=== PATIENT | female | born 1950 | race Hispanic/Latino ===

== ENCOUNTER 2017-09-13 11:51 | Emergency (ER) | payer OTHER ==
[2017-09-13] MEDS ORDERED: ONDANSETRON 4 MG/2 ML VIAL ONE (12:12)
[2017-09-13] MEDS ORDERED: KETOROLAC 30 MG/ML INJ ONE (12:12)
[2017-09-13] MEDS ORDERED: NA CHLORIDE 0.9% 1,000 ML ONE (12:12)
[2017-09-13] MEDS ORDERED: FENTANYL CITR 100 MCG/2 ML ONE (12:12)
[2017-09-13 12:32] LABS: Urine Bacteria <20 /HPF (<20); Urine Culture Reflex Order NOT NEEDED; Urine RBC <5 /HPF (NONE SEEN)
[2017-09-13 12:35] LABS: Absolute Lymphocytes (CBC) 3.9 K/uL (0.7-4.9); Absolute Monocytes 0.7 K/uL (0.1-1.3); Absolute Neutrophil 4.8 K/uL (1.8-8.0); Basophils % 0.6 % (0-1.3); Eosinophils % 1.6 % (0-4.4); Hematocrit 42.1 % (36.0-45.0); Lymphocytes % 40.3 % (15.3-44.8); MCH 30.9 pg (27.0-35.0); MCV 91.1 fL (80-100); MPV 8.1 fL (7.6-11.3); Monocytes % 6.9 % (3.3-12.3); RBC Red Blood Cell Count 4.62 M/uL (3.86-4.86)
[2017-09-13 13:03] LABS: Potassium 3.9 mEq/L (3.6-5.0)
[2017-09-13 13:10] LABS: Albumin 4.6 g/dL (3.2-5.5); Bilirubin Direct 0.1 mg/dL (0-0.2); Bilirubin Total 0.7 mg/dL (0.3-1.2); Protein, Total 7.9 g/dL (6.0-8.3)
[2017-09-13] MEDS ORDERED: DEXAMETHASONE 10 MG/ML VIAL ONE (13:48)
--- NOTE | 2017-09-13 14:28 | RAD REPORT ---
EXAM DESCRIPTION: CT - Abdomen Pelvis W Contrast - 09/13/2017 2:05 pm CLINICAL HISTORY: Abdominal pain with nausea. COMPARISON: none. TECHNIQUE: Computed axial tomography of the abdomen pelvis was obtained. 100 cc Isovue-300 was admin istered intravenously. Oral contrast was not requested which limits evaluation of bowel. All CT scans are performed using dose optimization technique as appropriate and may include automated exposure control or mA/KV adjustment according to patient size. FINDINGS: The liver has a diminished attenuation consistent with fatty infiltration Spleen, pancreas, adrenal and kidneys appear unremarkable. There is no evidence of diverticulitis. The appendix is normal IMPRESSION: No acute abnormality is displayed.
[2017-09-13 14:30] LABS: Urine Blood NEGATIVE (NEG); Urine Glucose NEGATIVE (NEG); Urine Protein NEGATIVE (NEG); Urine Specific Gravity <1.005 (1.005-1.030)
--- NOTE | 2017-09-13 15:09 | EDPHYS ---
Physician Documentation [facility] Name: Kavya Merida Age: 67 yrs Sex: Female : 1950 Arrival Date: 09/13/2017 Time: 11:53 Bed 8 Private MD: Maurice Landaverde ED Physician Maged Walton HPI: 09/13 12:07 This 67 yrs old Female presents to ER via Ambulatory with complaints of Back tsering Pain. 12:07 The patient presents with pain that is acute, and decreased range of motion. The tsering symptoms are located in the low back, lumbar area. Onset: The symptoms/episode began/occurred 4 day(s) ago. Location: left low back and right low back. Associated signs and symptoms: The patient has no apparent associated signs or symptoms. The problem was sustained from unknown cause. Modifying factors: The patient symptoms are alleviated by nothing. The patient has not experienced similar symptoms in the past. Historical: - Allergies: 12:04 No Known Allergies; hb - Home Meds: 12:30 None [Active]; hb - PMHx: 12:30 None; hb - Immunization history:: Adult Immunizations up to date. - Social history:: Smoking status: Patient/guardian denies using tobacco. - Family history:: not pertinent. ROS: 12:07 Constitutional: Negative for fever, chills, and weight loss, Eyes: Negative for injury, tsering pain, redness, and discharge, ENT: Negative for injury, pain, and discharge, Neck: Negative for injury, pain, and swelling, Cardiovascular: Negative for chest pain, palpitations, and edema, Respiratory: Negative for shortness of breath, cough, wheezing, and pleuritic chest pain, Abdomen/GI: Negative for abdominal pain, nausea, vomiting, diarrhea, and constipation, : Negative for injury, bleeding, discharge, and swelling, MS/Extremity: Negative for injury and deformity, Skin: Negative for injury, rash, and discoloration, Neuro: Negative for headache, weakness, numbness, tingling, and seizure, Psych: Negative for depression, anxiety, suicide ideation, homicidal ideation, and hallucinations, Allergy/Immunology: Negative for hives, rash, and allergies, Endocrine: Negative for neck swelling, polydipsia, polyuria, polyphagia, and marked weight changes, Hematologic/Lymphatic: Negative for swollen nodes, abnormal bleeding, and unusual bruising. 12:07 Back: Positive for decreased range of motion, pain at rest, radiated pain. Exam: 12:07 Constitutional: This is a well developed, well nourished patient who is awake, alert, tseirng and in no acute distress. Head/Face: Normocephalic, atraumatic. Eyes: Pupils equal round and reactive to light, extra-ocular motions intact. Lids and lashes normal. Conjunctiva and sclera are non-icteric and not injected. Cornea within normal limits. Periorbital areas with no swelling, redness, or edema. ENT: Nares patent. No nasal discharge, no septal abnormalities noted. Tympanic membranes are normal and external auditory canals are clear. Oropharynx with no redness, swelling, or masses, exudates, or evidence of obstruction, uvula midline. Mucous membranes moist. Neck: Trachea midline, no thyromegaly or masses palpated, and no cervical lymphadenopathy. Supple, full range of motion without nuchal rigidity, or vertebral point tenderness. No Meningismus. Chest/axilla: Normal chest wall appearance and motion. Nontender with no deformity. No lesions are appreciated. Cardiovascular: Regular rate and rhythm with a normal S1 and S2. No gallops, murmurs, or rubs. Normal PMI, no JVD. No pulse deficits. Respiratory: Lungs have equal breath sounds bilaterally, clear to auscultation and percussion. No rales, rhonchi or wheezes noted. No increased work of breathing, no retractions or nasal flaring. Abdomen/GI: Soft, non-tender, with normal bowel sounds. No distension or tympany. No guarding or rebound. No evidence of tenderness throughout. Female : Normal external genitalia. Skin: Warm, dry with normal turgor. Normal color with no rashes, no lesions, and no evidence of cellulitis. MS/ Extremity: Pulses equal, no cyanosis. Neurovascular intact. Full, normal range of motion. Neuro: Awake and alert, GCS 15, oriented to person, place, time, and situation. Cranial nerves II-XII grossly intact. Motor strength 5/5 in all extremities. Sensory grossly intact. Cerebellar exam normal. Normal gait. Psych: Awake, alert, with orientation to person, place and time. Behavior, mood, and affect are within normal limits. 12:07 Back: pain, that is moderate, ROM is painless, normal spinal alignment noted, CVA tenderness, is absent, muscle spasm, is appreciated in the left low back, left mid back, right mid back and right low back. Vital Signs: 12:04 BP 137 / 89; Pulse 82; Resp 16; Temp 98; Pulse Ox 100% on R/A; Pain 10/10; hb 13:00 BP 115 / 76; Pulse 80; Resp 15; Pulse Ox 100% on R/A; Pain 5/10; hb 14:00 BP 108 / 63; Pulse 65; Resp 14; Pulse Ox 100% on R/A; hb 15:00 BP 116 / 68; Pulse 64; Resp 16; Pulse Ox 100% on R/A; hb MDM: 11:58 Patient medically screened. [facility] 12:09 Data reviewed: vital signs, nurses notes, lab test result(s), radiologic studies. [facility] 09/13 12:06 Order name: Basic Metabolic Panel; Complete Time: 13:23 [facility] 09/13 12:06 Order name: CBC with Diff; Complete Time: 13:23 [facility] 09/13 12:06 Order name: Creatinine for Radiology; Complete Time: 13:23 [facility] 09/13 12:06 Order name: Hepatic Function; Complete Time: 13:23 [facility] 09/13 12:06 Order name: Lipase; Complete Time: 13:23 [facility] 09/13 12:06 Order name: Urine Microscopic Only; Complete Time: 13:23 [facility] 09/13 12:06 Order name: CT Abd/Pelvis - W/Contrast; Complete Time: 14:43 [facility] 09/13 12:10 Order name: Urine Culture [facility] 09/13 12:15 Order name: Urine Dipstick--Ancillary (enter results); Complete Time: 14:43 09/13 12:06 Order name: IV Saline Lock; Complete Time: 13:02 [facility] 09/13 12:06 Order name: Labs collected and sent; Complete Time: 13:03 [facility] 09/13 12:06 Order name: Urine Dipstick-Ancillary (obtain specimen); Complete Time: 12:09 [facility] Administered Medications: 12:22 Drug: NS 0.9% 1000 ml Route: IV; Rate: 1 bolus; Site: right antecubital; hb 13:08 Follow up: Response: No adverse reaction; IV Status: Completed infusion hb 12:22 Drug: TORadol 30 mg Route: IVP; Site: right antecubital; hb 13:08 Follow up: Response: No adverse reaction hb 12:22 Drug: Zofran 4 mg Route: IVP; Site: right antecubital; hb 13:08 Follow up: Response: No adverse reaction hb 13:08 Drug: fentaNYL (PF) 25 mcg Route: IVP; Site: right antecubital; hb 14:00 Follow up: Response: No adverse reaction; Pain is decreased hb 13:44 Drug: Decadron - Dexamethasone 10 mg Route: IVP; Site: right antecubital; hb 14:15 Follow up: Response: No adverse reaction hb Disposition: 09/13/17 15:08 Discharged to Home. Impression: Low back pain. - Condition is Stable. - Discharge Instructions: Back Pain, Adult, Musculoskeletal Pain, Pain Without a Known Cause, Back Injury Prevention, [id number], Back Pain, Adult, [id number], Back Exercises, [id number]. - Prescriptions for Skelaxin 800 mg Oral Tablet - take 1 tablet by ORAL route every 8 hours As needed; 30 tablet. Tylenol- Codeine #3 300-30 mg Oral Tablet - take 2 tablet by ORAL route every 6 hours As needed; 30 tablet. Motrin IB 200 mg Oral Tablet - take 2 tablet by ORAL route every 6 hours As needed as needed with food; 30 tablet. - Medication Reconciliation Form, Thank You Letter, Antibiotic Education, Prescription Opioid Use form. - Follow up: Maurice Landaverde MD; When: 2 - 3 days; Reason: Recheck today's complaints, Continuance of care, Re-evaluation by your physician. - Problem is new. - Symptoms have improved. Signatures: Dispatcher [employer] [facility] Maged Walton MD MD cha Baxter, Heather, RN RN hb Corrections: (The following items were deleted from the chart) 15:26 15:08 09/13/2017 15:08 Discharged to Home. Impression: Low back pain. Condition is hb Stable. Forms are Medication Reconciliation Form, Thank You Letter, Antibiotic Education, Prescription Opioid Use. Follow up: Maurice Landaverde; When: 2 - 3 days; Reason: Recheck today's complaints, Continuance of care, Re-evaluation by your physician. Problem is new. Symptoms have improved. tsering
--- NOTE | 2017-09-13 15:09 | ER ---
Nurse's Notes [facility] Name: Kavya Merida Age: 67 yrs Sex: Female : 1950 Arrival Date: 09/13/2017 Time: 11:53 Bed 8 Private MD: Maurice Landaverde Diagnosis: Low back pain Presentation: 09/13 12:04 Presenting complaint: Patient states: Worsening low back pain that radiates to abdomen hb x 4 days. Transition of care: patient was not received from another setting of care. Onset of symptoms was September 10, 2017. Initial Sepsis Screen: Does the patient meet any 2 criteria? No. Patient's initial sepsis screen is negative. Does the patient have a suspected source of infection? No. Patient's initial sepsis screen is negative. Care prior to arrival: None. 12:04 Acuity: FABIOLA 3 hb 12:04 Method Of Arrival: Ambulatory hb Triage Assessment: 12:06 General: Appears in no apparent distress. uncomfortable, Behavior is calm, cooperative. hb Pain: Complains of pain in right mid back and left mid back and right low back and left low back and lumbar area , radiates to abdomen Pain currently is 10 out of 10 on a pain scale. EENT: No signs and/or symptoms were reported regarding the EENT system. Neuro: Level of Consciousness is awake, alert, obeys commands, Oriented to person, place, time, situation. Cardiovascular: Capillary refill < 3 seconds Patient's skin is warm and dry. Respiratory: Airway is patent Trachea midline Respiratory effort is even, unlabored, Respiratory pattern is regular, symmetrical. GI: No signs and/or symptoms were reported involving the gastrointestinal system. : No signs and/or symptoms were reported regarding the genitourinary system. Derm: No signs and/or symptoms reported regarding the dermatologic system. Skin is intact, is healthy with good turgor, Skin is pink, warm \T\ dry. Musculoskeletal: Circulation, motion, and sensation intact. Reports pain in low back, mid back, lumbar area. Historical: - Allergies: 12:04 No Known Allergies; hb - Home Meds: 12:30 None [Active]; hb - PMHx: 12:30 None; hb - Immunization history:: Adult Immunizations up to date. - Social history:: Smoking status: Patient/guardian denies using tobacco. - Family history:: not pertinent. Screenin:07 Abuse screen: Denies threats or abuse. Denies injuries from another. Nutritional hb screening: No deficits noted. Tuberculosis screening: No symptoms or risk factors identified. Fall Risk None identified. Assessment: 12:15 General: see triage assessment. hb 12:25 Reassessment: Pt finished drinking oral contrast. Gabbie in CT notified. hb 13:10 Reassessment: Pt reports pain 5-6/10, fentanyl administered as ordered. VSS. Bed locked hb in low position, call light within reach. 14:00 Reassessment: Patient appears in no apparent distress at this time. Patient and/or hb family updated on plan of care and expected duration. Pain level reassessed. Patient is alert, oriented x 3, equal unlabored respirations, skin warm/dry/pink. Family at bedside. 15:00 Reassessment: Patient appears in no apparent distress at this time. No changes from hb previously documented assessment. Patient and/or family updated on plan of care and expected duration. Pain level reassessed. Patient is alert, oriented x 3, equal unlabored respirations, skin warm/dry/pink. Patient states symptoms have improved. Vital Signs: 12:04 BP 137 / 89; Pulse 82; Resp 16; Temp 98; Pulse Ox 100% on R/A; Pain 10/10; hb 13:00 BP 115 / 76; Pulse 80; Resp 15; Pulse Ox 100% on R/A; Pain 5/10; hb 14:00 BP 108 / 63; Pulse 65; Resp 14; Pulse Ox 100% on R/A; hb 15:00 BP 116 / 68; Pulse 64; Resp 16; Pulse Ox 100% on R/A; hb ED Course: 11:53 Patient arrived in ED. sb2 11:54 Maurice Landaverde MD is Private Physician. sb2 11:58 Maged Walton MD is Attending Physician. tsering 12:01 Erica Childress RN is Primary Nurse. hb 12:07 Triage completed. hb 12:07 Arm band placed on right wrist. hb 12:15 Patient has correct armband on for positive identification. Placed in gown. Bed in low hb position. Call light in reach. 12:20 Inserted saline lock: 20 gauge in right antecubital area, using aseptic technique. hb Blood collected. 13:17 No provider procedures requiring assistance completed. tw2 14:04 CT completed. Patient moved to CT via wheelchair. Patient moved back from CT. cw1 14:05 CT Abd/Pelvis - W/Contrast In Process Unspecified. EDIL 15:08 Maurice Landaverde MD is Referral Physician. [facility] 15:26 IV discontinued, intact, bleeding controlled, No redness/swelling at site. Pressure hb dressing applied. Administered Medications: 12:22 Drug: NS 0.9% 1000 ml Route: IV; Rate: 1 bolus; Site: right antecubital; hb 13:08 Follow up: Response: No adverse reaction; IV Status: Completed infusion hb 12:22 Drug: TORadol 30 mg Route: IVP; Site: right antecubital; hb 13:08 Follow up: Response: No adverse reaction hb 12:22 Drug: Zofran 4 mg Route: IVP; Site: right antecubital; hb 13:08 Follow up: Response: No adverse reaction hb 13:08 Drug: fentaNYL (PF) 25 mcg Route: IVP; Site: right antecubital; hb 14:00 Follow up: Response: No adverse reaction; Pain is decreased hb 13:44 Drug: Decadron - Dexamethasone 10 mg Route: IVP; Site: right antecubital; hb 14:15 Follow up: Response: No adverse reaction hb Outcome: 15:08 Discharge ordered by . [facility] 15:26 Discharged to home ambulatory, with family. 15:26 Condition: stable 15:26 Discharge instructions given to patient, Instructed on discharge instructions, follow up and referral plans. medication usage, Demonstrated understanding of instructions, follow-up care, medications, Prescriptions given X 3. 15:26 Patient left the ED. hb Signatures: Dispatcher [employer] Maged Kumar MD MD cha Woodley, Crystal cw1 Erica Childress RN RN Silke Meek RN RN tw2 Maral Montilla sb2
== END 2017-09-13 15:26 | disposition home or self-care (01) ==
LOC: ER 11:51
DX: M54.5 Low back pain (principal)
CPT/HCPCS: 36415; 74177; 80048; 80076; 81003; 81015; 83690; 85025; 87086; 87088; 96361; 96374; 96375; 99284; J1100; J2405; J3010; J7030; Q9967

== ENCOUNTER 2018-07-26 22:10 | Emergency (ER) | payer OTHER ==
[2018-07-26] MEDS ORDERED: MORPHINE 4 MG/ML SYR ONE (22:58)
[2018-07-26] MEDS ORDERED: ONDANSETRON 4 MG/2 ML VIAL ONE (22:58)
[2018-07-26] MEDS ORDERED: BUPIVACAINE 0.5% PF 10 ML VIAL ONE (23:11)
[2018-07-26] MEDS ORDERED: LIDOCAINE 1% 20 ML MDV ONE (23:12)
[2018-07-26] MEDS ORDERED: KETOROLAC 30 MG/ML INJ ONE (23:44)
[2018-07-27] MEDS ORDERED: HYDROMORPHONE HCL 0.5 MG/0.5 ML INJ ONE (00:57)
--- NOTE | 2018-07-27 01:39 | ER ---
Nurse's Notes [facility] Name: Kavya Merida Age: 68 yrs Sex: Female : 1950 Arrival Date: 07/26/2018 Time: 22:16 Bed 15 Private MD: Diagnosis: Left Distal Radius Fracture Presentation: 07/26 22:21 Presenting complaint: Patient states: trip an fall from standing, landing on left ak1 wrist. left wrist deformity. Transition of care: patient was not received from another setting of care. Onset of symptoms was July 26, 2018. Risk Assessment: Do you want to hurt yourself or someone else? Patient reports no desire to harm self or others. Care prior to arrival: None. 22:21 Method Of Arrival: Ambulatory ak1 22:21 Acuity: FABIOLA 3 ak1 Triage Assessment: 22:22 General: Appears in no apparent distress. Behavior is calm, cooperative. Pain: ak1 Complains of pain in dorsal aspect of left wrist and palmar aspect of left wrist. Historical: - Allergies: 22:22 No Known Allergies; ak1 - Home Meds: 22:22 None [Active]; ak1 - PMHx: 22:22 None; ak1 - PSHx: 22:22 None; ak1 - Immunization history:: Adult Immunizations up to date. - Social history:: Smoking status: Patient/guardian denies using tobacco. - Ebola Screening: : No symptoms or risks identified at this time. Screenin:30 Abuse screen: Denies threats or abuse. Denies injuries from another. Nutritional aa1 screening: No deficits noted. Tuberculosis screening: No symptoms or risk factors identified. Fall Risk Fall in past 12 months (25 points). Assessment: 22:30 General: Appears in no apparent distress. comfortable, Behavior is calm, cooperative, aa1 appropriate for age. Pain: Complains of pain in dorsal aspect of left wrist. Neuro: Level of Consciousness is awake, alert, obeys commands, Oriented to person, place, time, situation. Cardiovascular: Pulses are palpable in right radial artery and left radial artery. Respiratory: Airway is patent Respiratory effort is even, unlabored, Respiratory pattern is regular, symmetrical. GI: No signs and/or symptoms were reported involving the gastrointestinal system. : No signs and/or symptoms were reported regarding the genitourinary system. EENT: No signs and/or symptoms were reported regarding the EENT system. Derm: Skin is intact, is healthy with good turgor, Skin is pink, warm \T\ dry. Musculoskeletal: Circulation, motion, and sensation intact. Capillary refill < 3 seconds, Range of motion: limited in left wrist 22:56 Reassessment: Patient appears in no apparent distress at this time. Patient and/or aa1 family updated on plan of care and expected duration. Pain level reassessed. Patient is alert, oriented x 3, equal unlabored respirations, skin warm/dry/pink. Awaiting reduction of L wrist. 23:47 Reassessment: Patient appears in no apparent distress at this time. Patient and/or aa1 family updated on plan of care and expected duration. Pain level reassessed. Patient is alert, oriented x 3, equal unlabored respirations, skin warm/dry/pink. Pt's L wrist placed in traction with 5 lb weight. 07/27 00:44 Reassessment: Patient appears in no apparent distress at this time. Patient and/or aa1 family updated on plan of care and expected duration. Pain level reassessed. Patient is alert, oriented x 3, equal unlabored respirations, skin warm/dry/pink. Pt still in traction. 02:00 Reassessment: Patient appears in no apparent distress at this time. Patient is alert, aa1 oriented x 3, equal unlabored respirations, skin warm/dry/pink. Discussed d/c \T\ f/u instructions with pt \T\ family; denies questions or concerns at this time Patient states symptoms have improved. Vital Signs: 07/26 22:21 BP 144 / 131; Pulse 106; Resp 18; Pulse Ox 96% on R/A; Weight 65.77 kg (R); Height 5 ak1 ft. 2 in. (157.48 cm) (R); Pain 5/10; 22:30 BP 129 / 79; Pulse 92; Resp 18; Pulse Ox 95% on R/A; aa1 23:47 BP 122 / 93; Pulse 89; Resp 18; Pulse Ox 96% on R/A; Pain 4/10; aa1 07/27 00:43 BP 133 / 91; Pulse 74; Resp 18; Temp 97.9; Pulse Ox 97% on R/A; Pain 5/10; aa1 01:23 BP 119 / 81; Pulse 77; Resp 16; Temp 98.0; Pulse Ox 97% on R/A; aa1 07/26 22:21 Body Mass Index 26.52 (65.77 kg, 157.48 cm) ak1 ED Course: 07/26 22:16 Patient arrived in ED. ak1 22:21 Arm band placed on Patient placed in an exam room, on a stretcher, on pulse oximetry, ak1 Patient notified of wait time. 22:22 Tanika Pathak, EUGENIA is Primary Nurse. aa1 22:22 Triage completed. ak1 22:28 Gulshan Hernández PA is PHCP. jmm 22:28 Cristino Montesinos MD is Attending Physician. jmm 22:30 Patient has correct armband on for positive identification. Bed in low position. Call aa1 light in reach. Pulse ox on. NIBP on. 22:44 X-ray completed. Portable x-ray completed in exam room. Patient tolerated procedure az well. 22:44 Wrist Left (3 View) XRAY In Process Unspecified. EDMS 22:52 Inserted saline lock: 20 gauge in right antecubital area, using aseptic technique. mw2 07/27 01:38 Orthoglass splint: Sugar tong splint applied on left arm. Sling applied to left arm. oe 02:00 No provider procedures requiring assistance completed. IV discontinued, intact, aa1 bleeding controlled, No redness/swelling at site. Pressure dressing applied. Administered Medications: 07/26 22:58 Drug: Zofran 4 mg Route: IVP; Site: left antecubital; aa1 23:45 Follow up: Response: No adverse reaction aa1 22:59 Drug: morphine 4 mg Route: IVP; Site: right antecubital; aa1 23:45 Follow up: Response: No adverse reaction; Pain is unchanged, physician notified aa1 23:20 Drug: Lidocaine (1 %) 1 application Volume: 20 ml; Route: Infiltration; aa1 23:20 Drug: Marcaine (0.5 %) 1 application Volume: 10 ml; Route: Infiltration; aa1 23:45 Drug: TORadol 30 mg Route: IVP; Site: right antecubital; aa1 07/27 00:15 Follow up: Response: No adverse reaction; Pain is unchanged, physician notified aa1 01:15 Drug: Dilaudid 0.5 mg Route: IVP; Site: right antecubital; aa1 02:00 Follow up: Response: No adverse reaction; Pain is decreased aa1 Outcome: 01:38 Discharge ordered by MD. lazcano 02:00 Discharged to home ambulatory, with family. aa1 02:00 Condition: good 02:00 Discharge instructions given to patient, family, Instructed on discharge instructions, follow up and referral plans. medication usage, Demonstrated understanding of instructions, follow-up care, medications, Prescriptions given X 2. 02:05 Patient left the ED. aa1 Signatures: Dispatcher [employer] EDTanika Pryor RN RN aa1 Gulshan Hernández PA PA jmm Krenek, Amber, RN RN ak1 Jesse Mendoza MyKena mw2 June Daigle
--- NOTE | 2018-07-27 01:39 | EDPHYS ---
Physician Documentation [facility] Name: Kavya Merida Age: 68 yrs Sex: Female : 1950 Arrival Date: 07/26/2018 Time: 22:16 Bed 15 Private MD: ED Physician Cristino Montesinos HPI: 07/26 22:34 This 68 yrs old Female presents to ER via Ambulatory with complaints of Wrist jmm Injury. 22:34 The patient or guardian reports injury, pain. Onset: The symptoms/episode jmm began/occurred acutely, just prior to arrival. This is a 68 year old female with no chronic medical conditions that presents to the ED with left wrist pain after tripping and falling on an outstretched hand. Patient denies other injury. . Historical: - Allergies: 22:22 No Known Allergies; ak1 - Home Meds: 22:22 None [Active]; ak1 - PMHx: 22:22 None; ak1 - PSHx: 22:22 None; ak1 - Immunization history:: Adult Immunizations up to date. - Social history:: Smoking status: Patient/guardian denies using tobacco. - Ebola Screening: : No symptoms or risks identified at this time. ROS: 22:34 Constitutional: Negative for fever, chills, and weight loss, Cardiovascular: Negative jmm for chest pain, palpitations, and edema, Respiratory: Negative for shortness of breath, cough, wheezing, and pleuritic chest pain. 22:34 MS/extremity: Positive for injury or acute deformity, pain. 22:34 All other systems are negative. Exam: 22:34 Constitutional: This is a well developed, well nourished patient who is awake, alert, jmm and in no acute distress. Head/Face: atraumatic. Eyes: EOMI, no conjunctival erythema appreciated ENT: Moist Mucus Membranes Neck: Trachea midline, Supple Chest/axilla: Normal chest wall appearance and motion. Cardiovascular: Regular rate and rhythm. No edema appreciated Respiratory: Normal respirations, no respiratory distress appreciated Abdomen/GI: Non distended, soft Back: Normal ROM Skin: General appearance color normal 22:34 Musculoskeletal/extremity: deformity noted to the left wrist, full radial pulse, compartments are soft, NVI. 22:34 Skin: Appearance: Color: normal in color. 22:34 Neuro: Orientation: is normal, Mentation: is normal, Memory: is normal. 22:34 Psych: Behavior/mood is pleasant, cooperative. Vital Signs: 22:21 BP 144 / 131; Pulse 106; Resp 18; Pulse Ox 96% on R/A; Weight 65.77 kg (R); Height 5 ak1 ft. 2 in. (157.48 cm) (R); Pain 5/10; 22:30 BP 129 / 79; Pulse 92; Resp 18; Pulse Ox 95% on R/A; aa1 23:47 BP 122 / 93; Pulse 89; Resp 18; Pulse Ox 96% on R/A; Pain 4/10; aa1 07/27 00:43 BP 133 / 91; Pulse 74; Resp 18; Temp 97.9; Pulse Ox 97% on R/A; Pain 5/10; aa1 01:23 BP 119 / 81; Pulse 77; Resp 16; Temp 98.0; Pulse Ox 97% on R/A; aa1 07/26 22:21 Body Mass Index 26.52 (65.77 kg, 157.48 cm) ak Procedures: 07/26 22:34 Splinting: Splint applied to left arm using sling, sugar tong. applied by tech. post [facility] reduction film - reveals normal alignment, reveals improved alignment, Examined by me, post splint application: neurovascular intact, 2+ distal pulses palpable, brisk capillary refill noted, Patient tolerated well. MDM: 22:34 Patient medically screened. [facility] 07/27 01:37 Data reviewed: vital signs, nurses notes. Counseling: I had a detailed discussion with [facility] the patient and/or guardian regarding: the historical points, exam findings, and any diagnostic results supporting the discharge/admit diagnosis, radiology results, the need for outpatient follow up, to return to the emergency department if symptoms worsen or persist or if there are any questions or concerns that arise at home. 01:37 ED course: I discussed the patient with Dr. Dueñas who will follow up with the patient in [facility] clinic. Patient given compartment syndrome return precautions. patient understood and agree with the plan of care. . 07/26 22:23 Order name: Wrist Left (3 View) XRAY aa1 07/26 23:25 Order name: Misc. Order: traction with finger traps and 5 lb weight; Complete Time: [facility] 23:59 07/27 01:09 Order name: Sugar Tong Forearm Splint; Complete Time: 02:05 [facility] 07/27 01:10 Order name: Sling; Complete Time: 02:05 [facility] Administered Medications: 07/26 22:58 Drug: Zofran 4 mg Route: IVP; Site: left antecubital; aa1 23:45 Follow up: Response: No adverse reaction aa1 22:59 Drug: morphine 4 mg Route: IVP; Site: right antecubital; aa1 23:45 Follow up: Response: No adverse reaction; Pain is unchanged, physician notified aa1 23:20 Drug: Lidocaine (1 %) 1 application Volume: 20 ml; Route: Infiltration; aa1 23:20 Drug: Marcaine (0.5 %) 1 application Volume: 10 ml; Route: Infiltration; aa1 23:45 Drug: TORadol 30 mg Route: IVP; Site: right antecubital; aa1 07/27 00:15 Follow up: Response: No adverse reaction; Pain is unchanged, physician notified aa1 01:15 Drug: Dilaudid 0.5 mg Route: IVP; Site: right antecubital; aa1 02:00 Follow up: Response: No adverse reaction; Pain is decreased aa1 Disposition: 07/27/18 01:38 Discharged to Home. Impression: Left Distal Radius Fracture. - Condition is Stable. - Discharge Instructions: Colles Fracture. - Prescriptions for Tylenol- Codeine #3 300-30 mg Oral Tablet - take 1 tablet by ORAL route every 6 hours As needed; 20 tablet. Ibuprofen 800 mg Oral Tablet - take 1 tablet by ORAL route every 8 hours As needed take with food; 30 tablet. - Medication Reconciliation Form, Thank You Letter, Antibiotic Education, Prescription Opioid Use form. - Follow up: Private Physician; When: 2 - 3 days; Reason: Recheck today's complaints, Continuance of care, Re-evaluation by your physician. Addendum: 07/28/2018 07:22 Co-signature as Attending Physician, Cristino Montesinos MD I agree with the assessment and t w4 plan of care. Signatures: Dispatcher [employer] Tanika Anand, RN RN aa1 Gulshan Hernández PA PA Melani West RN RN ak1 Cristino Montesinos MD MD tw4 Corrections: (The following items were deleted from the chart) 07/27 02:05 01:38 07/27/2018 01:38 Discharged to Home. Impression: Left Distal Radius Fracture. aa1 Condition is Stable. Forms are Medication Reconciliation Form, Thank You Letter, Antibiotic Education, Prescription Opioid Use. Follow up: Private Physician; When: 2 - 3 days; Reason: Recheck today's complaints, Continuance of care, Re-evaluation by your physician. neno
--- NOTE | 2018-07-27 08:33 | RAD REPORT ---
EXAM DESCRIPTION: RAD - Wrist Left 3 View - 07/26/2018 10:44 pm CLINICAL HISTORY: Left wrist pain status post injury FINDINGS: Impacted, comminuted, moderately displaced distal radial fracture with angulation present at the fracture site. No dislocation seen
== END 2018-07-27 02:05 | disposition home or self-care (01) ==
LOC: ER 22:10
PROC: 2W3DX1Z Immobilization of Left Lower Arm using Splint (ICD-10-PCS; principal; 2018-07-27)
DX: S52.502A Unspecified fracture of the lower end of left radius, initial encounter for closed fracture (principal); W01.0XXA Fall on same level from slipping, tripping and stumbling without subsequent striking against object, initial encounter; Y93.9 Activity, unspecified; Y92.9 Unspecified place or not applicable
CPT/HCPCS: 99284; J1170; J2405

== ENCOUNTER 2018-07-30 06:35 | Day surgery (SDC) | payer OTHER ==
--- NOTE | 2018-07-28 17:35 | RAD REPORT ---
EXAM DESCRIPTION: Robyn Crow (2 Views)07/28/2018 5:26 pm CLINICAL HISTORY: Preop COMPARISON: 2009 FINDINGS: The lungs appear clear of acute infiltrate. The heart is normal size IMPRESSION: No acute abnormalities displayed
[2018-07-28 17:53] LABS: Protime INR 1.06
[2018-07-28 18:00] LABS: Absolute Lymphocytes (CBC) 2.8 K/uL (0.7-4.9); Absolute Monocytes 0.5 K/uL (0.1-1.3); Absolute Neutrophil 4.5 K/uL (1.8-8.0); Basophils % 0.3 % (0-1.3); Hematocrit 39.8 % (36.0-45.0); Lymphocytes % 35.6 % (15.3-44.8); MPV 9.1 fL (7.6-11.3); Monocytes % 5.9 % (3.3-12.3); Potassium 3.9 mmol/L (3.5-5.1); RBC Red Blood Cell Count 4.41 M/uL (3.86-4.86)
--- OUTSIDE RECORDS SUMMARY | 2018-07-30 06:38 | XMS REPORT ---
:1950 Author Organization [employer] Care Team Providers Name Role Phone Babatunde Dueñas Provider Role Unavailable Allergies No Known Allergies Problems No Known Problems Medications No Known Medications Results No Known Results Summary Purpose [employer] Submission
[2018-07-30] MEDS ORDERED: PROPOFOL 200 MG/20 ML VIAL IV ONE (07:03)
[2018-07-30] MEDS ORDERED: NA CHLORIDE 0.9% 1,000 ML ONE ×2 (07:04→08:56)
[2018-07-30] MEDS ORDERED: MIDAZOLAM HCL 2 MG/2 ML INJ ONE (07:04)
[2018-07-30] MEDS ORDERED: CEFAZOLIN/SWI 1gm 1 GM/10 ML SYR ONE (07:04)
[2018-07-30] MEDS ORDERED: LIDOCAINE 2% MPF 5 ML VIAL ONE (07:05)
[2018-07-30] MEDS ORDERED: FENTANYL CITR 250 MCG/5 ML ONE (07:05)
[2018-07-30] MEDS ORDERED: ONDANSETRON 4 MG/2 ML VIAL ONE (07:07)
[2018-07-30] MEDS: BUPIVACAINE 0.5% PF 10 ML VIAL ONE ×2 (08:00→08:55)
--- NOTE | 2018-07-30 09:18 | P.BOP ---
Preoperative diagnosis: left distal radius fracture Postoperative diagnosis: same Primary procedure: open reduction internal fixation left distal radius fracture Documentation Supervisor: NONE,NONE Estimated blood loss: 5 cc Specimen: none Findings: see dictation Anesthesia: General Complications: None Implants: 3 hole Acumed distal radius narrow plate Fluids & blood products: per anesthesia record; TT: 58 mins @ 250 mmHg Transferred to: Recovery Room Condition: Good
[2018-07-30] MEDS: MEPERIDINE HCL 50 MG/ML AMP ONE ×2 (09:21→09:27)
[2018-07-30] MEDS: HYDROMORPHONE HCL 1 MG/ML INJ ONE ×2 (09:38→09:49)
[2018-07-30] MEDS ORDERED: HYDROCODONE/APAP 5/325 MG TAB ONE (10:33)
--- NOTE | 2018-07-30 11:00 | RAD REPORT ---
EXAM DESCRIPTION: RAD - Wrist Left 3 View - 07/30/2018 9:59 am CLINICAL HISTORY: Distal left radius fracture COMPARISON: Intraoperative imaging July 30, pre-surgical imaging July 26 FINDINGS: PA and lateral views were obtained postoperatively. Plate and screw fixation of a distal radius fracture noted. Hardware is in good position. No suspicio us or unexpected finding. IMPRESSION: Fracture fixation distal left radius with no suspicious or unexpected finding.
--- NOTE | 2018-07-30 11:43 | RAD REPORT ---
EXAM DESCRIPTION: RAD - Wrist Left 3 View - 07/30/2018 9:10 am CLINICAL HISTORY: Radial fracture. FINDINGS: Intraoperative internal fixation/open reduction of a distal radial fracture performed. The surgery was done by Dr. Dueñas. Thirteen fluoroscopic images obtained. Fluoroscopy time 0.5 minutes.
--- NOTE | 2018-07-30 23:30 | OP ---
Date of Procedure: 07/30/2018 Surgeon: Babatunde Dueñas MD Preoperative Diagnosis: Left extra-articular distal radius fracture. Postoperative Diagnosis: Left extra-articular distal radius fracture. Procedure Performed: Open reduction and internal fixation, left distal radius fracture. Anesthesia: General, LMA. Fluids: Per Anesthesia record. Estimated Blood Loss: 5 cc. Implants: A 3-hole Acumed narrow distal radius plate. Complications: None. Tourniquet Time: 58 minute at 250 mmHg. Indication For Procedure: Kavya is a 68-year-old female, presented to my clinic earlier this week after sustaining a fall with subsequent injury to her left wrist. X-rays demonstrated a significant ly displaced and angulated distal radius fracture. I discussed with the patient at length risks and benefits associated with operative and nonoperative treatment. She expressed understanding and elect ed to proceed with the operative treatment. Description Of Procedure: After informed consent was obtained, the patient was identified in the pre operative holding area. The left upper extremity was marked. The patient was then brought back to t he operating room, transferred to the operating table in supine fashion, placed under general LMA ane sthesia. The left upper extremity was then prepped and draped in usual sterile fashion. Time-out wa s initiated. Correct patient and procedure were confirmed and identified. The patient did receive h er preoperative prophylactic antibiotics. The left upper extremity was then exsanguinated using an E smarch and the tourniquet was inflated at 250 mmHg. An approximately a 10 cm longitudinal incision w as made, centered over the FCR tendon using the volar Benjamin approach. The FCR tendon was noted. Onc e the incision was made, dissection was taken down to the FCR tendon sheath using Metzenbaum. Once t he tendon sheath was encountered, it was split, divided, and preserved and split proximally and dista lly in line with incision. The FCR tendon was then gently retracted radially and blunt dissection wa s then taken to the pronator quadratus . The pronator quadratus was then elevated off the distal radius and off the radial border of the distal radius and using an elevator, the fracture was then identified and the left wrist was then manipulated and the fracture was reduced. Once the prope r reduction noted by fluoroscopy in both AP and lateral views, a K-wire was then placed crossing the fracture fracture reduced. A 3-hole narrow Acumed distal radius plate was then placed in proper position using fluoroscopy and held into position using K-wires with proper position. A singl e 0.35 cortical screw was placed in the proximal fragment. There was good overall reduction of the p late to the bone and the fracture maintained with overall good reduction. Four locking screws were t hen placed in the distal fragment in unicortical fashion. There was overall good fixation of the fra cture fragment and good overall alignment. Two final screws were placed in the proximal fragment in bicortical fashion. Final x-rays were taken. There was good overall reduction of the fracture and g ood overall alignment of the hardware. The wound was then irrigated thoroughly with normal saline. Subcutaneous tissue was approximated using a 2-0 Vicryl and the skin was approximated using a 3-0 nyl on in horizontal mattress fashion. Sterile dressings were applied. The patient was placed in a vola r resting splint. She was awaken and transferred to the PACU in stable condition after the tournique t was let down. Postoperative Plan: She will be nonweightbearing of her left upper extremity. She will follow up ne xt week for wound check. She will return in 2 weeks after surgery for suture removal. DENISE/CARMINE Voice ID: [id number] Report ID: [id number]
--- NOTE | 2018-08-03 11:16 | EKG ---
Test Date: 2018-07-28 Test Time: 16:57:34 Metal Miner: NIKUNJ MEASUREMENT RESULTS: Intervals: Rate: 72 NH: 160 QRSD: 76 QT: 378 QTc: 413 Tofte: P: 56 NH: 160 QRS: -22 T: 43 INTERPRETIVE STATEMENTS: Normal sinus rhythm Septal infarct, age undetermined Abnormal ECG Compared to ECG 06/27/2008 13:42:23 Myocardial infarct finding now present Electronically Signed On 07-28-18 16:59:38 CDT by Barry Morris
== END 2018-07-30 11:15 | disposition home or self-care (01) ==
LOC: OR 06:35
PROVIDERS: ATTEND Orthopaedic Surgery Sports Medicine
PROC: 0PSJ04Z Reposition Left Radius with Internal Fixation Device, Open Approach (ICD-10-PCS; principal; 2018-07-30 07:30)
DX: S52.552A Other extraarticular fracture of lower end of left radius, initial encounter for closed fracture (principal); E11.9 Type 2 diabetes mellitus without complications; Z82.61 Family history of arthritis; Z83.3 Family history of diabetes mellitus; Z82.49 Family history of ischemic heart disease and other diseases of the circulatory system
CPT/HCPCS: 36415; 71046; 80048; 82962; 83036; 85025; 85610; 85730; 93005; J0690; J1170; J2175; J2250; J2405; J2704; J3010; J7030

== ENCOUNTER 2020-12-03 08:42 | Day surgery (SDC) | payer OTHER ==
[2020-12-03 08:50] LABS: Basophils % 0.8 % (0-1.3); Hematocrit 34.1 % (36.0-45.0); Lymphocytes % 35.8 % (15.3-44.8); MPV 6.9 fL (7.6-11.3); RBC Red Blood Cell Count 3.63 M/uL (3.86-4.86)
[2020-12-03 08:57] LABS: Potassium 4.4 mmol/L (3.5-5.1)
--- NOTE | 2020-12-03 08:58 | RAD REPORT ---
EXAM DESCRIPTION: Robyn Crow (2 Views)12/03/2020 8:40 am CLINICAL HISTORY: Preop for catheter removal COMPARISON: 2019 FINDINGS: Small right lung nodules unchanged. The The lungs appear clear of acute infiltrate. The heart is normal size. A central venous catheter h as its tip in the superior vena cava IMPRESSION: No acute abnormalities displayed
[2020-12-03] MEDS ORDERED: NA CHLORIDE 0.9% 1,000 ML ONE (10:37)
[2020-12-03] MEDS ORDERED: CEFAZOLIN/SWI 1gm 1 GM/10 ML SYR ONE (10:38)
[2020-12-03] MEDS ORDERED: BUPIVACAINE 0.5% PF 10 ML VIAL ONE (12:04)
[2020-12-03] MEDS ORDERED: FENTANYL CITR 100 MCG/2 ML ONE (12:06)
[2020-12-03] MEDS ORDERED: propofoL 200 MG/20 ML VIAL IV ONE (12:06)
[2020-12-03] MEDS ORDERED: MIDAZOLAM HCL 2 MG/2 ML INJ ONE (12:07)
[2020-12-03] MEDS ORDERED: LIDOCAINE 2% MPF 5 ML VIAL ONE (12:11)
[2020-12-03] MEDS ORDERED: ONDANSETRON 4 MG/2 ML VIAL ONE (12:11)
--- NOTE | 2020-12-03 13:21 | P.BOP ---
Preoperative diagnosis: colon cancer, hx of chemotherapy Postoperative diagnosis: same Primary procedure: REmoval of portacath Estimated blood loss: <5cc Specimen: portacath Findings: intact portacath Anesthesia: MAC Transferred to: Recovery Room Condition: Good
[2020-12-03 14:32] VITALS: BP 97/60; TEMP 96.8; O2SAT 99
--- NOTE | 2020-12-03 15:48 | OP ---
Date of Procedure: 12/03/2020 Surgeon: Benjamin Kebede MD Preoperative Diagnosis: Colon cancer, history of chemotherapy. Postoperative Diagnosis: Colon cancer, history of chemotherapy. Procedure: Removal of Port-A-Cath. Specimen: Intact Port-A-Cath. Finding: As above. Anesthesia: MAC plus local. Indication: This is the case of a female, who comes to us with history of colon cancer status post s urgical resection, status post chemotherapy. She finished her chemotherapy. Now, she is agreed to r emove the Port-A-Cath. The benefits, alternatives, and risks were fully explained, which include, bu t not limited to infection, bleeding, damage to adjacent structures, anesthesia medication, PE, DC, a nd even . She also understands this may not relieve any symptoms. She may need more than one s urgical intervention. She understood, signed a consent. Procedure In Detail: The area of concern was marked by me and the patient in the holding room. The patient was brought to the operating room, placed in supine position. A time-out was called. Right chest was prepped and draped in usual sterile fashion. Local anesthetic was applied followed by dominique p incision of the previous scar. Incision was carried down until we found the Port-A-Cath and capsul e. We opened that capsule and dissected the subcutaneous tissue and then pull the catheter intact. Pressure was applied over the insertion point for about 15 minutes. In the meantime, we irrigated th e area and closed the area with 3-0 chromic and subcuticular closure with 3-0 chromic with Steri-Stri p on top. Sponge count and instrument counts correct. The patient tolerated the procedure well. The patient was sent to recovery in stable condition. FABIENNE/CARMINE Voice ID: [id number] Report ID: [id number]
--- NOTE | 2020-12-03 15:48 | DS ---
Date of Discharge: 12/03/2020 Diagnosis: History of colon cancer. Procedure: Removal of Port-A-Cath. Disposition: Home. Activity: As tolerated. No heavy lifting. Plan: Follow up in my office in 1 week. Call for appointment at [phone]. Keep area dry for 48 rayray rs, then may shower. Keep Steri-Strip intact. Medications: Include Tylenol No.3 q.4 hours p.r.n. pain. FABIENNE/CARMINE Voice ID: [id number] Report ID: [id number]
== END 2020-12-03 13:50 | disposition home or self-care (01) ==
LOC: OR 08:42
PROVIDERS: ATTEND Surgery
PROC: 0JPT0WZ Removal of Totally Implantable Vascular Access Device from Trunk Subcutaneous Tissue and Fascia, Open Approach (ICD-10-PCS; principal; 2020-12-03 13:45)
DX: C18.9 Malignant neoplasm of colon, unspecified (principal); Z20.822 Contact with and (suspected) exposure to COVID-19
CPT/HCPCS: 93005; 85025; 80048; 36415; 82947; 88300; 71046; 36589; U0003; J2704; J2250; J3010; J0690; J7030; J2405

== ENCOUNTER 2024-02-19 09:40 | Day surgery (SDC) | payer MEDICARE ==
[2024-02-18 11:51] LABS: Absolute Eosinophils 0.1 K/uL (0-0.5); Absolute Lymphocytes (CBC) 2.4 K/uL (0.7-4.9); Absolute Monocytes 0.4 K/uL (0.1-1.3); Absolute Neutrophil 3.3 K/uL (1.8-8.0); Basophils % 0.7 % (0-1.3); Eosinophils % 2.2 % (0-4.4); Hematocrit 36.6 % (36.0-45.0); Hemoglobin 12.4 g/dL (12.0-15.0); MCH 31.1 pg (27.0-35.0); MCHC 33.8 g/dL (32.0-36.0); MCV 92.1 fL (80-100); MPV 7.4 fL (7.6-11.3); Monocytes % 6.9 % (3.3-12.3); Neutrophils % 52.2 % (41.7-73.7); Platelets 247 thou/uL (152-406); RBC Red Blood Cell Count 3.97 M/uL (3.86-4.86); Red Cell Distribution Width 12.5 % (12.1-15.2)
[2024-02-18 11:58] LABS: PT Prothrombin Time 12.1 SECONDS (9.4-12.5); PTT, Activated Partial Thromb 36.9 SECONDS (24.3-36.9); Protime INR 1.08
[2024-02-18 12:06] LABS: Anion Gap 8.3 mEq/L (5.0-15.0); Potassium 4.3 mEq/L (3.5-5.1)
--- NOTE | 2024-02-18 12:09 | RAD REPORT ---
EXAMINATION: TWO VIEW CHEST XR CLINICAL INDICATION: PREPROCEDURE SCREENING TECHNIQUE: 2 views of the chest was performed. COMPARISON: No prior exam. FINDINGS: The lungs are well inflated and clear. The heart is normal in size. No displaced fractures evident. IMPRESSION: No acute or significant abnormalities. The USPSTF recommends annual screening for lung cancer with low-dose computed tomography (LDCT) in ad ults aged 50 to 80 years who have a 20 pack-year smoking history and currently smoke or have quit within the past 15 years. Screening should be discontinued once a person has not smoked for 15 years or develops a health problem that substantially limits life expectancy or the ability or willingness to have curative lung surgery.
[2024-02-19] MEDS ORDERED: NA CHLORIDE 0.9% 1,000 ML ONE (10:11)
[2024-02-19] MEDS ORDERED: KETOROLAC 30 MG/ML INJ ONE (10:37)
[2024-02-19] MEDS ORDERED: LIDOCAINE 1% MPF 5 ML VIAL ONE (10:37)
[2024-02-19] MEDS ORDERED: ONDANSETRON 4 MG/2 ML VIAL ONE (10:37)
[2024-02-19] MEDS ORDERED: propofoL 200 MG/20 ML VIAL IV ONE (10:38)
[2024-02-19] MEDS ORDERED: MIDAZOLAM HCL 2 MG/2 ML INJ ONE (10:38)
[2024-02-19] MEDS ORDERED: FENTANYL CITR 100 MCG/2 ML ONE (10:38)
[2024-02-19] MEDS: CEFAZOLIN SODIUM 1 GM/VIAL ONE (11:05)
[2024-02-19] MEDS ORDERED: EPHEDRINE SULF 50 MG/ML VIAL ONE (11:07)
[2024-02-19] MEDS: BUPIVACAINE 0.25% PF 30 ML VIAL ONE (11:26)
--- NOTE | 2024-02-19 11:40 | P.BOP ---
Preoperative diagnosis: Right knee medial meniscus tear Postoperative diagnosis: Same, right knee lateral meniscus tear Primary procedure: Right knee arthroscopic partial medial and lateral meniscectomies Finance Assistant: NONE,NONE Estimated blood loss: 3 cc Specimen: None Findings: See dictation Anesthesia: General Complications: None Implants: None Fluids & blood products: Per anesthesia record Transferred to: Recovery Room Condition: Good
[2024-02-19 12:18] VITALS: TEMP 97.5
[2024-02-19 13:32] VITALS: BP 116/60; O2SAT 98
--- NOTE | 2024-02-19 22:31 | OP ---
Date of Procedure: 02/19/2024 Surgeon: Babatunde Deuñas MD Preoperative Diagnosis: Right knee medial meniscus tear. Postoperative Diagnoses: 1. Right knee medial meniscus tear. 2. Right knee lateral meniscus tear. Procedure Performed: Right knee arthroscopic partial medial and lateral meniscectomy. Anesthesia: General LMA. Fluids: Per Anesthesia record. Indication for Procedure: Kavya is a 73-year-old female who presented to my clinic to my clinic with signs, symptoms and MRI findings consistent with a right knee medial meniscus tear. I discussed with the patient at length risk and benefits associated with operative and nonoperative treatment measures. She expressed understanding and elected to proceed with operative treatment. Description of Procedure: After informed consent was obtained the patient was identified the preoperative holding area the right lower extremity was marked. Patient was then brought back to the operating room transferred the operating table in the supine fashion placed under general LMA anesthesia. The right lower extremity was then prepped and draped in usual sterile fashion. A time- out was initiated. The correct patient and procedure confirmed and identified. The patient did receive her preoperative prophylactic antibiotics. Standard anteromedial, anterolateral portals were created. Arthroscope was brought in the anterolateral portal and diagnostic arthroscopy was performed. Arthroscope was then first brought into the patellofemoral joint where the patient was noted to have grade 2 chondromalacia changes, in distal patella as well. The arthroscope was then brought in both medial and lateral gutters. There were no loose bodies within the gutters. Arthroscope was brought in the medial compartment where the patient has had some chondromalacia changes of the medial femoral condyle as well as medial tibial plateau. The patient had a complex tear of posterior horn of the medial meniscus. The proximal medial meniscectomy was performed using meniscal biters and arthroscopic nandini to smooth meniscal borders. The arthroscope was then brought in the intercondylar notch. The patient was noted to have an intact ACL and PCL, which were stable to probe. The arthroscope was then brought in the lateral compartment. The patient was noted to have some complex tear of the lateral meniscus body as well as posterior horn. A partial lateral meniscectomy was performed using arthroscopic shaver and meniscal biters to smooth meniscal borders. Arthroscopic instruments were then removed without complication. Wounds have been irrigated thoroughly with normal saline. Portals were approximated using a 4-0 Monocryl. Sterile dressings were applied. Once tourniquet was let down, patient is awakened and transferred to PACU in stable condition. Postoperative Plan: The patient will follow up in 1 week for wound check. The patient will begin physical therapy 1-2 weeks per postmeniscectomy protocol. KEREN Voice ID: [id number] Report ID: [id number]
== END 2024-02-19 13:10 | disposition home or self-care (01) ==
LOC: OR 09:40
PROVIDERS: ADMIT Orthopaedic Surgery Sports Medicine; ATTEND Orthopaedic Surgery Sports Medicine
PROC: 0SBC4ZZ Excision of Right Knee Joint, Percutaneous Endoscopic Approach (ICD-10-PCS; 2024-02-19)
PROC: 0SBC4ZZ Excision of Right Knee Joint, Percutaneous Endoscopic Approach (ICD-10-PCS; principal; 2024-02-19 13:00)
DX: S83.231A Complex tear of medial meniscus, current injury, right knee, initial encounter (principal); S83.271A Complex tear of lateral meniscus, current injury, right knee, initial encounter
CPT/HCPCS: 85025; 80048; 36415; 85610; 82947 ×2; 85730; 71046; 29880; J2704; J2003; J2250; J3010; J2405; J7030; J0690